=== PATIENT | female | born 1990 | race Caucasian/White ===

== ENCOUNTER 2017-06-09 20:09 | Emergency (ER) | payer BC ==
[2017-06-09 20:47] LABS: BASOPHILS 0.2 % (0-2); EOSINOPHILS 1.5 % (0-7); HEMATOCRIT 37.3 % (36.0-48.0); HEMOGLOBIN 13.7 g/dL (12-16); IMMATURE GRANULOCYTES 0.1 % (0-5); LYMPHOCYTES 18.4 % (15-50); MCH 29.7 pg (26.0-34.0); MCHC 36.7 g/dL (31.0-37.0); MCV 80.7 fL (80.0-100.0); MEAN PLATELET VOLUME 9.4 fL (7.4-10.4); MONOCYTES 5.5 % (2-11); NEUTROPHILS 74.3 % (40-80); PLATELET COUNT 250 10x3/uL (130-400); RBC 4.62 10x6/uL (4.00-5.40); RDW 12.1 % (11.5-14.5); WBC 10.1 10x3/uL (4.8-10.8)
[2017-06-09 20:59] LABS: HELICOBACTER PYLORI IGG NEGATIVE (NEGATIVE)
[2017-06-09 21:01] LABS: ALBUMIN 3.5 g/dL (3.4-5.0); ALKALINE PHOSPHATASE 52 U/L (46-116); ALT (SGPT) 23 U/L (10-68); BILIRUBIN - TOTAL 1.39 mg/dL (0.2-1.3); CALC OSMOLALITY 274 mosm/kg (275-300); CARBON DIOXIDE 24.8 mmol/L (21.0-32.0); CHLORIDE - SERUM 101 mmol/L (98-107); CREATININE - SERUM 0.6 mg/dL (0.6-1.3); GLUCOSE 139 mg/dL (74-106); POTASSIUM - SERUM 3.1 mmol/L (3.5-5.1); PROTEIN - SERUM 7.3 g/dL (6.4-8.2); SODIUM 137 mmol/L (136-145); UREA NITROGEN 10 mg/dL (7-18); eGFR NON AFRICAN AMERICAN > 90 mL/min (90-120)
[2017-06-09 21:23] LABS: AMYLASE - SERUM 37 U/L (25-115); HCG - QUANTITATIVE (MATERNAL) 84964 mIU/mL; LIPASE 107 U/L (73-393); MAGNESIUM - SERUM 1.9 mg/dL (1.8-2.4)
[2017-06-09 22:12] LABS: APPEARANCE CLOUDY (CLEAR); BILIRUBIN NEGATIVE (NEGATIVE); COLOR YELLOW (YELLOW); GLUCOSE 50 mg/dL (NEGATIVE); KETONE NEGATIVE (NEGATIVE); LEUKOCYTE ESTERASE TRACE (NEGATIVE); NITRITE NEGATIVE (NEGATIVE); PROTEIN NEGATIVE (NEGATIVE); SPECIFIC GRAVITY 1.025 (1.005-1.020)
[2017-06-09 22:15] LABS: BACTERIA MODERATE /hpf (NONE SEEN); MUCUS >1+ /lpf (NONE SEEN); RED CELLS - URINE 0-5 /hpf (0-5)
== END 2017-06-10 00:19 | disposition home or self-care (01) ==
LOC: D.ER 20:09
PROVIDERS: Emergency Medicine; Nurse Practitioner Family
DX: O21.1 Hyperemesis gravidarum with metabolic disturbance (principal); Z3A.00 Weeks of gestation of pregnancy not specified

== ENCOUNTER 2017-07-07 07:21 | Emergency (ER) | payer BC ==
[2017-07-07 08:08] LABS: BASOPHILS 0.2 % (0-2); EOSINOPHILS 1.6 % (0-7); HEMATOCRIT 34.7 % (36.0-48.0); HEMOGLOBIN 12.8 g/dL (12-16); IMMATURE GRANULOCYTES 0.2 % (0-5); LYMPHOCYTES 17.1 % (15-50); MCH 30.1 pg (26.0-34.0); MCHC 36.9 g/dL (31.0-37.0); MCV 81.6 fL (80.0-100.0); MEAN PLATELET VOLUME 9.1 fL (7.4-10.4); MONOCYTES 4.9 % (2-11); PLATELET COUNT 200 10x3/uL (130-400); RBC 4.25 10x6/uL (4.00-5.40); WBC 9.3 10x3/uL (4.8-10.8)
[2017-07-07 08:24] LABS: HCG SERUM POSITIVE (NEGATIVE)
== END 2017-07-07 10:40 | disposition home or self-care (01) ==
LOC: D.ER 07:21
PROVIDERS: Emergency Medicine
DX: O20.9 Hemorrhage in early pregnancy, unspecified (principal); Z3A.15 15 weeks gestation of pregnancy